=== PATIENT | female | born 1985 | race Caucasian/White ===

== ENCOUNTER 2018-10-15 19:07 | Emergency (ER) | payer OTHER, MEDICAID ==
[~2018-10-15] VITALS: Ht 162.6 cm; Wt 110.2 kg
[~2018-10-15 19:07] MED LIST: BACTRIM DS TAB1 EACH PO; BIRTH CONTROL; BUTALB-APAP-CA1 EACH PO; CIPRO500 MG PO; DOXYCYCLINE 10100 MG PO; FLAGYL500 MG PO; FLEXERIL PO; HYDROCODON-ACE1 EAC7 PO; HYDROXYZINE HCL25 M2 PO; IBUPROFEN 800800 M1 PO; MEDROLDOSEPACK PO; NORCO 5-325 TA1 EACH PO; PREDNISONE 20 M20 M1 PO; ROBAXIN500 MG PO; TARINA FE 1-201 EACH; TORADOL 10 MG T10 MG PO; ULTRAM 50MG TAB50 MG PO; ZOFRAN4 MG PO
[2018-10-15] MEDS ORDERED: NORCO 5-325 TA1 EACH PO (20:16)
[2018-10-15] MEDS ORDERED: IBUPROFEN 800800 M1 PO (20:24)
[2018-10-15 20:38] VITALS: BP 119/57
== END 2018-10-15 20:39 | disposition home or self-care (01) ==
LOC: M.ERS 19:07
DX: S32.10XA Unspecified fracture of sacrum, initial encounter for closed fracture (principal); S32.2XXA Fracture of coccyx, initial encounter for closed fracture; F17.210 Nicotine dependence, cigarettes, uncomplicated; Z90.49 Acquired absence of other specified parts of digestive tract; W00.0XXA Fall on same level due to ice and snow, initial encounter; Y93.89 Activity, other specified; Y92.89 Other specified places as the place of occurrence of the external cause; Y99.8 Other external cause status